=== PATIENT | male | born 1970 | race Two or more races ===

== ENCOUNTER 2017-08-28 22:02 | Emergency (ER) | payer OTHER ==
--- NOTE | 2017-08-28 22:42 | NUR ---
CALLED PT NAME X 3. NO RESPONSE PER ADMITTING PT LEFT WAITING ROOM.
== END 2017-08-28 22:46 | disposition left against medical advice (07) ==
LOC: ER 22:07
DX: Z53.21 Procedure and treatment not carried out due to patient leaving prior to being seen by health care provider (principal)